=== PATIENT | male | born 1940 | race Caucasian/White ===

== ENCOUNTER → 2017-09-22 07:31 | Outpatient (CLI) | payer MEDICARE, BC, SELFPAY ==
--- NOTE | 2017-09-22 | DI.RAD.S_ITS ---
PROCEDURE: XR FOOT RT MIN 3V INDICATIONS: RIGHT DISTAL FOOT PAIN TECHNIQUE: 3 views of the foot were acquired. COMPARISON: [facility], , FOOT 3V RIGHT, 06/08/2006, 11:12. FINDINGS: Bones: No fractures or dislocations. No suspicious bony lesions. Mild degenerative changes in multiple interphalangeal joints. Mild lateral first MTP joint subluxation. Soft tissues: No tibiotalar joint effusion. Achilles tendon appears normal. IMPRESSION: No acute fractures or dislocations. Mild degenerative change. Dictated by: Ruben Kothari M.D. on 09/22/2017 at 12:24 Approved by: Ruben Kothari M.D. on 09/22/2017 at 12:25
== END ==
PROVIDERS: PCP Family Medicine; Visit Provider Family Medicine
DX: M79.671 Pain in right foot (principal)
CPT/HCPCS: 73630

== ENCOUNTER → 2017-12-05 10:45 | Outpatient (CLI) | payer MEDICARE, BC, SELFPAY ==
--- NOTE | 2017-12-05 | DI.RAD.S_ITS ---
PROCEDURE: XR TIBIA FUBULA RT 2V INDICATIONS: RIGHT MEDICAL LEG CONTUSION TECHNIQUE: 2 views of the tibia and fibula were acquired. COMPARISON: [facility], CR, XR KNEE ARTHRITIC SERIES RT, 08/13/2015, 14:51. [facility], CR, XR KNEE 1 OR 2VW RT, 03/24/2015, 14:19. FINDINGS: Bones: No fractures or dislocations. Postsurgical changes compatible with right knee arthroplasty noted. Lucency is noted adjacent to the medial margin of the femoral component of the knee arthroplasty represent artifact, however infection or loosening of the prosthesis can't be excluded. Recommend dedicated right knee series for definitive characterization. Soft tissues: No suspicious soft tissue calcifications or masses. IMPRESSION: 1. No fracture. No acute osseous lesion. If symptoms and/or clinical suspicion for pathology persists, further assessment with repeat radiographs (7-10 days) or advanced imaging (e.g. CT, MRI or bone scan) may be helpful. 2. Lucency adjacent to the femoral component of right knee arthroplasty. Recommend dedicated right knee series for definitive characterization. 3. Findings discussed with Dr. Yordy Stone on 12/05/2017 at 1109 hrs. Dictated by: Estrella Benton MD, PhD on 12/05/2017 at 11:00 Approved by: Estrella Benton MD, PhD on 12/05/2017 at 11:10
== END ==
PROVIDERS: PCP Family Medicine; Visit Provider Internal Medicine
DX: S80.11XA Contusion of right lower leg, initial encounter (principal); Z96.651 Presence of right artificial knee joint
CPT/HCPCS: 73590

== ENCOUNTER → 2017-12-06 09:55 | Outpatient (CLI) | payer MEDICARE, BC, SELFPAY ==
--- NOTE | 2017-12-06 | DI.RAD.S_ITS ---
PROCEDURE: XR KNEE RT 3V INDICATIONS: RIGHT KNEE ABN TECHNIQUE: 3 views of the knee were acquired. COMPARISON: [facility], CR, XR KNEE ARTHRITIC SERIES RT, 08/13/2015, 14:51. [facility], CR, KNEE 3V RIGHT, 04/30/2014, 10:23. FINDINGS: Bones: No fractures or dislocations. No suspicious bony lesions. Prior right total knee arthroplasty components appear normal. Soft tissues: No joint effusion. No suspicious soft tissue calcifications. IMPRESSION: No trauma, no evidence of arthroplasty components loosening. No effusion found. Dictated by: Teo Bee M.D. on 12/06/2017 at 10:45 Approved by: Teo Bee M.D. on 12/06/2017 at 10:45
== END ==
PROVIDERS: PCP Family Medicine; Visit Provider Family Medicine
DX: R93.6 Abnormal findings on diagnostic imaging of limbs (principal)
CPT/HCPCS: 73562

== ENCOUNTER 2018-05-06 12:50 | Emergency (ER) | payer MEDICARE, BC, SELFPAY ==
[2018-05-06 13:00] VITALS: BP 143/90; PULSE 77; RESP 12; TEMP 36.6; O2SAT 98
--- NOTE | 2018-05-06 13:08 | DI.RAD.S_ITS ---
PROCEDURE: XR FOOT RT MIN 3V INDICATIONS: pain TECHNIQUE: 3 views of the foot were acquired. COMPARISON: 09/22/2017. FINDINGS: Bones: No fractures or dislocations. No suspicious bony lesions. Mild degenerative changes of the right first metatarsophalangeal joint. Small plantar calcaneal spur as before. Soft tissues: No tibiotalar joint effusion. Achilles tendon appears normal. IMPRESSION: Mild degenerative changes of the right foot. No acute osseous abnormalities. Dictated by: Ajit Luevano M.D. on 05/06/2018 at 14:11 Approved by: Ajit Luevano M.D. on 05/06/2018 at 14:14
--- NOTE | 2018-05-06 14:20 | ED.LOWEXIN ---
HPI - Extremity Injury (Lower) <DANIEL Rice Last Filed: 05/06/18 22:01> General Chief Complaint: Extremity Injury, Lower Stated Complaint: pain in right foot, heard something snap yest Time Seen by Provider: 05/06/18 13:04 Source: patient Mode of arrival: ambulatory Limitations: no limitations History of Present Illness HPI Narrative: This 78-year-old gentleman states he was walking down the [place] in his socks yesterday when he felt and heard a snap or popping sensation in his right midfoot, then he had pain with bearing any weight on it. He states he had to walk with pressure on his heel. He elevated the foot last night and tried heat. He states this morning, he still has difficulty walking due to the pain and was concerned about fracture so came here. He denies any other new pain in the extremity or other new symptoms. No other trauma. Related Data Home Medications Medication Instructions Recorded Confirmed felodipine 5 mg PO QDAY #0 06/14/17 omeprazole 20 mg PO QDAY #0 06/14/17 Previous Rx's Medication Instructions Recorded tramadol 1 tab PO Q6HP PRN #10 tab 06/14/17 Allergies Allergy/AdvReac Type Severity Reaction Status Date / Time oxycodone [OXYCODONE] Allergy Severe HIVES Unverified 07/20/17 12:04 Penicillins Allergy Severe HIVES Unverified 07/20/17 12:04 Review of Systems <Mikaela Reyes PA-C - Last Filed: 05/06/18 22:01> Review of Systems ROS Unobtainable: All systems reviewed & are unremarkable except as noted in HPI and below PFSH <DANIEL Riec Last Filed: 05/06/18 22:01> Comment: Former smoker Exam <DANIEL Rice Last Filed: 05/06/18 22:01> Narrative Exam Narrative: GENERAL APPEARANCE: Patient sitting comfortably, in no distress. LUNGS: Clear to auscultation bilaterally. HEART: Rate and rhythm regular without murmur, normal S1 and S2, no S3 or S4. EXTREMITIES: No cyanosis, no edema DERMATOLOGIC: Right foot no ecchymoses or abrasions MUSCULOSKELETAL: Right foot no effusion. No tenderness over the right ankle or bones of the right foot. Tender over the arch, more on the medial side. No tenderness elsewhere, Achilles is intact by palpation. Full range of motion at the right ankle and foot with tenderness on deviation. Strength is intact in the toes against resistance Initial Vital Signs Initial Vital Signs: Vital Signs Temperature 97.8 F 05/06/18 13:00 Pulse Rate 77 05/06/18 13:00 Respiratory Rate 12 05/06/18 13:00 Blood Pressure 143/90 H 05/06/18 13:00 Pulse Oximetry 98 05/06/18 13:00 <DO Claudette Gunter Last Filed: 05/07/18 07:02> Initial Vital Signs Initial Vital Signs: Vital Signs Temperature 97.8 F 05/06/18 13:00 Pulse Rate 77 05/06/18 13:00 Respiratory Rate 12 05/06/18 13:00 Blood Pressure 143/90 H 05/06/18 13:00 Pulse Oximetry 98 05/06/18 13:00 Course <DANIEL Rice Last Filed: 05/06/18 22:01> Orders Ordered: ED Orders 05/06/18 13:08 XR foot RT min 3V Stat Vital Signs - 8 hr 05/06/18 13:00 Temperature 97.8 F Pulse Rate 77 Respiratory Rate 12 Blood Pressure 143/90 H Pulse Oximetry 98 <DO Claudette Gunter Last Filed: 05/07/18 07:02> Orders Ordered: ED Orders 05/06/18 13:08 XR foot RT min 3V Stat Vital Signs - 8 hr 05/06/18 13:00 Temperature 97.8 F Pulse Rate 77 Respiratory Rate 12 Blood Pressure 143/90 H Pulse Oximetry 98 MDM - Extremity Injury (Lower) <DANIEL Rice Last Filed: 05/06/18 22:01> Imaging Data foot: Radiologist's impression: [address] [address] XRay Report Signed Patient: Ivan Vásquez#: [id number] : 1Acct:[id number] Age/Sex: 78 / MDate of Service: 05/06/18 Loc: ED Accession Number: [id number] Procedure: XR foot RT min 3V Ordering Provider: Lanker,Wesley D.O. PROCEDURE: XR FOOT RT MIN 3V INDICATIONS: pain TECHNIQUE: 3 views of the foot were acquired. COMPARISON: 09/22/2017. FINDINGS: Bones: No fractures or dislocations. No suspicious bony lesions. Mild degenerative changes of the right first metatarsophalangeal joint. Small plantar calcaneal spur as before. Soft tissues: No tibiotalar joint effusion. Achilles tendon appears normal. IMPRESSION: Mild degenerative changes of the right foot. No acute osseous abnormalities. Dictated by: Ajit Luevano M.D. on 05/06/2018 at 14:11 Approved by: Ajit Luevano M.D. on 05/06/2018 at 14:14 Discharge Plan Departure Patient Disposition: Home Clinical Impression: Right foot sprain Discharge Date/Time: 05/06/18 15:21 Interventions: ED Discharge Assessment Last Done: 05/06/18 15:20 Instructions: DI for Foot Sprain Activity Restrictions/Additional Instructions: There was no fracture found on your foot x-ray today. You do have some arthritis, but I suspect your pain is due to a soft tissue injury of a ligament or tendon. Please return if you have any acutely worsening symptoms, otherwise please wear the surgical shoe when you are walking. Please continue ice today if that is helpful. You can apply an [id number] lidocaine 4% patch or topical rub such as Emir Gtz or Aspercreme if you wish. Also please start Tylenol arthritis Strength/8 hr 650 mg, and take 1 tablet every 8 hr routinely as this is a lower dose and may be more helpful for keeping pain under control than extra-strength Tylenol. You can take an extra tablet for more severe pain if needed (up to 4 daily). Please schedule a follow-up with your PCP next week as repeat x-rays or further imaging may be needed if you are not getting better. Prescriptions: No Action omeprazole 20 MG capsule,delayed release(DR/EC) 20 mg PO QDAY Qty: 0 RF: 0 felodipine 5 MG tablet extended release 24 hr 5 mg PO QDAY Qty: 0 RF: 0 tramadol 50 MG tablet 1 tab PO Q6HP PRNQty: 10 RF: 0 Referrals: Yordy Stone MD [Primary Care Provider] - <Wesley Ratliff DO - Last Filed: 05/07/18 07:02> Cosign ED Attending Cosignature Attestation: I was available for consultation during this patient's emergency department encounter
== END 2018-05-06 15:21 | disposition home or self-care (01) ==
PROVIDERS: Emergency Provider Internal Medicine; PCP Family Medicine
DX: S93.601A Unspecified sprain of right foot, initial encounter (principal); Y93.02 Activity, running
CPT/HCPCS: 73630; 99282; 99283

== ENCOUNTER → 2018-05-15 18:51 | Outpatient (CLI) | payer MEDICARE, BC, SELFPAY ==
--- NOTE | 2018-05-15 18:55 | DI.MRI.S_ITS ---
PROCEDURE: MR FOOT RT WO CON INDICATIONS: RIGHT FOOT PAIN TECHNIQUE: Noncontrast sagittal T1 spin echo and T2 fast spin echo with fat saturation, long-axis T1 spin echo and T2 fast spin echo with fat saturation, short-axis T1 spin echo and T2 fast spin echo with fat saturation through the forefoot. COMPARISON: [facility], CR, XR FOOT RT MIN 3V, 05/06/2018, 14:02. FINDINGS: Image quality: Excellent. Bones and joints: Marrow edema is present within the base of the second and third metatarsal, and there is a suspected nondisplaced fracture seen on image 18 series 5 involving the base of the second metatarsal. Additional suspected fracture line seen in the third and fourth metatarsal bases, images 21 and 25 series 5. The sesamoid bones appear in expected positions, without internal edema. First metatarsophalangeal joint degeneration. No intraosseous lesions. Soft tissues: The visualized plantar foot muscles demonstrate T2 hyperintensity and edema, which could be reflective of acute strain versus reactive change to fracture. Visualized flexor and extensor tendons appear intact, without tenosynovitis. The distal insertions of the peroneus brevis and longus tendons appear intact. The principal Lisfranc ligament appears intact. No soft tissue ganglion cysts or bursal fluid collections. Sagittal images demonstrate no evidence for plantar plate tears. IMPRESSION: Nondisplaced stress fractures involving the bases of the second, third and fourth metatarsals with associated reactive marrow and adjacent soft tissue edema. Recommend confirmation and further characterization with dedicated foot CT. Dictated by: Antoni Hoffman M.D. on 05/16/2018 at 8:42 Approved by: Antoni Hoffman M.D. on 05/16/2018 at 8:59
== END ==
PROVIDERS: PCP Family Medicine; Visit Provider Family Medicine
DX: M84.374A Stress fracture, right foot, initial encounter for fracture (principal); M79.671 Pain in right foot
CPT/HCPCS: 73718

== ENCOUNTER → 2018-05-17 14:48 | Outpatient (CLI) | payer MEDICARE, BC, SELFPAY ==
--- NOTE | 2018-05-17 | DI.CT.S_ITS ---
PROCEDURE: CT LE RT WO CON INDICATIONS: NONDISPLACED STRESS FRACTURES RIGHT FOOT TECHNIQUE: Noncontrast 1-1.5 mm axial sections acquired from above the tibiotalar joint to the bottom of the calcaneus, with coronal and sagittal reformats. COMPARISON: [facility], CR, XR FOOT RT MIN 3V, 09/22/2017, 7:37. [facility], MR, MR FOOT RT WO CON, 05/15/2018, 19:01. [facility], CR, XR FOOT RT MIN 3V, 05/06/2018, 14:02. FINDINGS: Image quality: Excellent. Bones: At the base of the second, third and fourth metatarsal bones correlated with the area of MR concern from 05/15/18 definite fracture planes are not found. Mild degenerative osteoarthritic change is present at these respective T.-MT articulations. Several subchondral cysts are seen at the base of the metatarsal bones specifically at the second and third T.-MT margins at the second metatarsal base and at the third tarsal bone. These are chronic in appearance. No new fractures are found. Soft tissues: No soft tissue abnormality seen. IMPRESSION: The accuracy of MRI for detecting nondisplaced fractures is higher than CT scanning. The current CT scan does not show definite fractures at the base of the second, third and fourth metatarsal bones. There are areas of degenerative osteoarthritis at these 3 joint margins, with small subchondral cysts present as discussed above at the second and third rays. The prior MRI shows a greater degree of marrow space edema at the second ray than the third ray and minimal change at the fourth ray. Overall the appearance raises concern for a stress reaction rather than displaced fractures. Please note that stress reaction can progress to true stress fractures. Dictated by: Teo Bee M.D. on 05/17/2018 at 15:36 Approved by: Teo Bee M.D. on 05/17/2018 at 15:45
== END ==
PROVIDERS: PCP Family Medicine; Visit Provider Family Medicine
DX: M84.374A Stress fracture, right foot, initial encounter for fracture (principal); M19.071 Primary osteoarthritis, right ankle and foot; M85.671 Other cyst of bone, right ankle and foot; M79.671 Pain in right foot
CPT/HCPCS: 73700

== ENCOUNTER → 2018-06-09 09:09 | Outpatient (CLI) | payer MEDICARE, BC, SELFPAY ==
--- NOTE | 2018-06-09 | DI.RAD.S_ITS ---
PROCEDURE: XR FOOT LT MIN 3V INDICATIONS: lt foot pain no trauma TECHNIQUE: 3 views of the foot were acquired. COMPARISON: [facility], CR, XR FOOT LT MIN 3V, 06/09/2018, 0:00. FINDINGS: Bones: No fractures or dislocations. No suspicious bony lesions. Midfoot degenerative spurring. Mild first MTP joint degeneration. Diffuse interphalangeal osteoarthritis. Soft tissues: No tibiotalar joint effusion. Achilles tendon appears normal. IMPRESSION: Mild degenerative changes as above. Dictated by: Antoni Hoffman M.D. on 06/09/2018 at 11:51 Approved by: Antoni Hoffman M.D. on 06/09/2018 at 11:53
== END ==
PROVIDERS: PCP Family Medicine; Visit Provider Family Medicine
DX: M79.672 Pain in left foot (principal); M19.072 Primary osteoarthritis, left ankle and foot
CPT/HCPCS: 73630

== ENCOUNTER → 2018-11-22 13:16 | Outpatient (CLI) | payer MEDICARE, BC, SELFPAY ==
--- NOTE | 2018-11-22 | DI.RAD.S_ITS ---
PROCEDURE: XR HIP W PEL IF DONE RT 2V INDICATIONS: RIGHT ILLAIC AREA PAIN TECHNIQUE: AP pelvis with lateral view(s) of the right hip. COMPARISON: None. FINDINGS: Bones: No fractures or dislocations. Pelvic ring appears intact. No suspicious bony lesions. Soft tissues: The visualized bowel gas pattern is normal. No suspicious soft tissue calcifications. IMPRESSION: Minimal symmetric hip joint osteoarthritis, no trauma found. Dictated by: Teo Bee M.D. on 11/22/2018 at 14:27 Approved by: Teo Bee M.D. on 11/22/2018 at 14:28
== END ==
PROVIDERS: PCP Family Medicine; Visit Provider Family Medicine
DX: R10.2 Pelvic and perineal pain (principal)
CPT/HCPCS: 73502

== ENCOUNTER → 2019-04-06 08:04 | Outpatient (CLI) | payer MEDICARE, BC, SELFPAY ==
--- NOTE | 2019-04-09 18:18 | DI.NM.S_ITS ---
DATE OF SERVICE: 04/06/2019 PROCEDURE: Pharmacological perfusion study. INDICATIONS: Shortness of breath, hypertension. RADIOPHARMACEUTICAL: 25.1 mCi technetium-99m Myoview IV was injected at stress and 26.8 mCi technetium-99m Myoview IV was injected at rest. CARDIAC STRESS: Patient underwent pharmacological perfusion study with IV Lexiscan under the supervision of an attending staff. Patient remained hemodynamically stable. Baseline EKG revealed sinus rhythm. Stress EKG did not reveal any obvious inducible ischemic changes. No significant arrhythmias seen. No chest pain. Patient felt minimal dyspnea on during Lexiscan. RAW DATA: There is increased subdiaphragmatic activity. GATED STUDY: Stress LV ejection fraction 74% without any obvious wall motion abnormalities. No transient ischemic dilatation. TID ratio is 0.95, which is within normal limits. Resting LV end-diastolic volume is 107 mL. Lung/heart ratio is 0.32, which is within normal limits. MYOCARDIAL PERFUSION SCAN: Stress supine, resting supine, and stress prone images were compared to each other. Stress supine and resting supine images revealed small-to have a moderate sized, mildly decreased perfusion of inferior wall, inferoapex, and basal inferolateral wall which got completely resolved during prone images suggestive of tissue attenuation artifact. No convincing ischemia or infarction pattern seen. CONCLUSION: I will call this study a normal myocardial perfusion study with evidence of diaphragmatic tissue attenuation artifact which got resolved during prone images. Left ventricular (LV) function is preserved. Patient had perfusion study in 04/2017. At that time also had normal myocardial perfusion. Alex Vásquez - Ayush/ doc#: [id number]/job#: [id number] dd: 04/09/2019 17:05:00 dt: 04/09/2019 18:11:00 DICTATING MD/COPIES TO: Berna Becker MD COPIES MNE: FRED
== END ==
PROVIDERS: PCP Family Medicine; Visit Provider Family Medicine
DX: R06.09 Other forms of dyspnea (principal); R06.02 Shortness of breath; I10 Essential (primary) hypertension
CPT/HCPCS: 78452; 93016; 93017; 93018; A9502; J2785

== ENCOUNTER → 2019-04-13 14:30 | Outpatient (CLI) | payer MEDICARE, BC, SELFPAY ==
--- NOTE | 2019-04-13 | DI.RAD.S_ITS ---
PROCEDURE: XR CHEST 2V INDICATIONS: DYSPNEA TECHNIQUE: 2 views of the chest were acquired. COMPARISON: [facility], , CHEST 2 VIEW, 07/22/2008, 11:40. FINDINGS: Surgical changes and devices: None. Lungs and pleura: Lungs are clear. No pleural effusions or pneumothorax. Mediastinum: Mediastinal contours are normal. Heart size is normal. Bones and chest wall: No suspicious bony abnormalities. Soft tissues appear unremarkable. IMPRESSION: No acute pulmonary process. Dictated by: Amina Falk M.D. on 04/13/2019 at 16:38 Approved by: Amina Falk M.D. on 04/13/2019 at 16:39
== END ==
PROVIDERS: PCP Family Medicine; Visit Provider Family Medicine
DX: R06.00 Dyspnea, unspecified (principal)
CPT/HCPCS: 71046

== ENCOUNTER → 2020-05-14 07:35 | Outpatient (CLI) | payer MEDICARE, BC, SELFPAY ==
[2020-05-14] MEDS: COVID-19 VACC #1, MRNA(MOD) 100 MCG/0.5 ML VIAL IM (07:47)
== END ==
PROVIDERS: PCP Family Medicine; Visit Provider Internal Medicine
DX: Z23 Encounter for immunization (principal)
CPT/HCPCS: 0011A; 91301

== ENCOUNTER → 2020-06-12 07:27 | Outpatient (CLI) | payer MEDICARE, BC, SELFPAY ==
[2020-06-12] MEDS: COVID-19 VACC #2, MRNA(MOD) 100 MCG/0.5 ML VIAL IM (07:40)
== END ==
PROVIDERS: PCP Family Medicine; Visit Provider Internal Medicine
DX: Z23 Encounter for immunization (principal)
CPT/HCPCS: 0012A; 91301

== ENCOUNTER → 2021-10-13 10:30 | Outpatient (CLI) | payer MEDICARE, BC, SELFPAY ==
--- NOTE | 2021-10-13 18:27 | DI.NM.S_ITS ---
DATE OF SERVICE: PROCEDURE PERFORMED: Pharmacological perfusion study. INDICATION: Shortness of breath, hypertension, and underlying coronary artery disease. RADIOPHARMACEUTICAL: 24.4 millicurie technetium-99m Myoview IV was injected at stress and 12.2 millicurie technetium-99m Myoview IV was injected at rest. CARDIAC STRESS: The patient underwent IV Lexiscan perfusion study under the supervision of an attending staff using standard intravenous Lexiscan as per protocol. The patient remained hemodynamically stable. Baseline rhythm was sinus. During stress, no convincing ischemic changes. No new significant arrhythmias seen. The patient had minimal dyspnea. No chest discomfort. RAW DATA: There was increased subdiaphragmatic activity. The patient's weight is 209 pounds. GATED STUDY: Stress LV ejection fraction is 74 percent without any obvious wall motion abnormalities. Resting end-diastolic volume 93 mL. Lung/heart ratio 0.32, which is within normal limits. TID ratio 1.45. This is a pharmacological perfusion study. However, on visual inspection, I do not see any significant transient ischemic dilatation. MYOCARDIAL PERFUSION SCAN: Stress supine, resting supine, and stress prone images were compared to each other. Stress supine and resting supine images revealed small size, mildly decreased perfusion of basal inferior wall extending into the basal inferolateral wall as well as basal inferior septum and inferior apex which got completely resolved during stress prone images, suggestive of diaphragmatic tissue attenuation artifact. No convincing ischemia or infarction. CONCLUSION: I will call this study a normal myocardial perfusion study with evidence of diaphragmatic tissue attenuation artifact which got resolved during the stress prone images. Preserved left ventricular function. The patient had a pharmacological perfusion study in March,. At that time, also, the patient had similar perfusion study. Overall low-risk myocardial perfusion study. Alex Vásquez - MADY/kathryn/LEV doc#: [id number]/job#: [id number] dd: 10/13/2021 17:11:00 dt: 10/13/2021 18:19:00 DICTATING /COPIES TO: Berna Becker MD COPIES MNE: FRED;
== END ==
PROVIDERS: PCP Family Medicine; Referring Provider Family Medicine; Visit Provider Family Medicine
DX: I25.10 Atherosclerotic heart disease of native coronary artery without angina pectoris (principal)
CPT/HCPCS: 78452; 93017; A9502; J2785

== ENCOUNTER 2022-06-24 09:50 | Day surgery (SDC) | payer MEDICARE, BC, SELFPAY ==
--- NOTE | 2022-06-24 | PATH_ITS ---
[facility] Accession Number: [id number] No. of containers..01 Tissue . 01 Material submitted: . anal skin - ANAL LESION . 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 Negative for dysplasia or malignancy. Additional step sections examined. [facility] 07/01/2022 1741 Local . 01 Comment: As part of routine clinical quality assurance specialist, Dr. 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 . 01 Electronically signed: . Vasu Haskins MD, PhD, Pathologist NPI- [id number] . 01 Gross description: . ANAL LESION: Received in formalin are 2 fragment(s) of ramos, soft tissue measuring 0.1 x 0.1 x 0.1 cm submitted entirely in 1 cassette(s) /[facility] 06/25/2022 0142 Local . 01 Microscopic: . Sections are of squamous mucosa with mild reactive changes, including focal parakeratosis. To further evaluate the epithelium, a limited panel of immunohistochemical stains is performed (each with an appropriately positive control). The squamous epithelium is negative for block-like p16 immunoreactivity. A Ki-67 immunohistochemical stain shows a wild-type immunoreactivity pattern with the mitotic activity confined to the lower third. Overall, the features are consistent with a reactive process and provide no evidence of a condyloma. . * This test was developed and its performance characteristics determined by [facility]. It has not been cleared or approved by the U.S. Food and Drug Administration. The FDA has determined that such clearance or approval is not necessary. This test is used for clinical purposes. It should not be regarded as investigational or for research. . 01 Pathologist provided ICD-10: K62.0 . 01 CPT . 744151, M70210, M21865 Specimen Comment: A courtesy copy of this report has been sent to [phone] Performed at: 01 [facility] [address] [place] [address] [id number] MD Juan Daniel Romero MD Phone: [phone]
[2022-06-24 10:06] VITALS: BP 147/87; PULSE 108; RESP 16; TEMP 36.2; O2SAT 99; BMI 26.6
[2022-06-24] MEDS: LACTATED RINGERS 1,000 ML 120 ML IV (10:13)
--- NOTE | 2022-06-24 10:18 | PM.HP.1 ---
History of Present Illness History of Present Illness Date Patient Seen: 06/24/22 Time Patient Seen: 10:18 Chief complaint: SDC Narrative: Alex is a an 82-year-old man who here for for colonoscopy. His last 1 was about 5 years ago and was normal. He did have polyps at a previous colonoscopy. His brother recently had anal cancer. Patient History Medical History (Updated 06/24/22 @ 10:19 by Ketan Salas MD) Hearing deficit HTN (hypertension) Neuropathy Stomach ulcer due to nonsteroidal anti-inflammatory drug (NSAID) Surgical History 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 Hx of hernia repair Family & Social History Family History Mother Hypertension Father Hypertension Stroke Brother Colon cancer Sister Colon cancer Other Family history non-contributory Social History: household members spouse Tobacco & Substance use: Smoking Status Never smoker alcohol intake current alcohol intake frequency holiday/special occasion Substance Use Type does not use Meds Home Medications and Allergies Home Medications Medication Instructions Recorded Confirmed Type felodipine 5 mg tablet,extended 5 mg PO QDAY ##0 06/14/17 06/24/22 History release 24 hr omeprazole 20 mg capsule,delayed 20 mg PO QDAY ##0 06/14/17 06/24/22 History release sodium sul 1.479 gram-potas ch See Rx Instructions PO PER PKG DIR 05/20/22 06/24/22 Rx 0.188 gram-magnes sul 0.225 gram #24 tabs tablet (Sutab) tramadol 50 mg tablet 1 tab PO Q6HP PRN Insomnia 06/24/22 06/24/22 History Allergies Allergy/AdvReac Type Severity Reaction Status Date / Time oxycodone [OXYCODONE] Allergy Severe HIVES Verified 06/24/22 09:56 Penicillins Allergy Severe HIVES Verified 06/24/22 09:56 Exam Vital Signs (past 8 hours): - 06/24/22 10:06 Temperature 97.2 F L Pulse Rate 108 H Respiratory Rate 16 Blood Pressure 147/87 H Pulse Oximetry 99 Oxygen Delivery Method Room Air Oxygen Delivery Method Room Air Const General: healthy appearing Assessment & Plan Assessment and plan (1) History of colon polyps: Status: Acute Plan 82-year-old man with a history of colon polyps and brother who had anal cancer. We reviewed the risks and benefits of colonoscopy and he would like to proceed. Time Spent With Patient Critical Care time: I spent a total of [] minutes of critical care time on this patient's care today; this time is exclusive of procedural time.
--- NOTE | 2022-06-24 11:23 | PM.OP.COLON ---
Operative Date/Time/Diagnoses Date of procedure: 06/24/22 Time of procedure: 11:23 Pre-op diagnosis: History of polyps Procedure & Clinicians Study performed: Colonoscopy Same procedure as scheduled: Yes Surgeon: Ketan Salas Procedure Notes Procedure in detail: Surgeon: Ketan Salas MD Anesthesia: Diana Alexandre CRNA Procedure: The patient was brought to the endoscopy suite, placed in left lateral decubitus position. The patient was connected to monitoring devices. A time-out was performed. Sedation was administered. Once the patient was adequately sedated, a digital rectal exam was performed and was normal. The scope was then inserted and advanced to the cecum where the appendiceal orifice was identified and photographed. The scope was then slowly withdrawn over greater than 6 minutes. The mucosa was thoroughly inspected. No abnormalities were noted throughout the colon. The scope was retroflexed in the rectum. There was a lesion right at the dentate line which was most likely a retroflexed hemorrhoidal papilla. Biopsies were taken with cold forceps. The scope was straightened and removed. The patient was awakened and brought to recovery. Scope withdrawal time: 9 minutes Sedation time: 17 minutes EBL: 5 mL Findings: Retroflexed hemorrhoidal papilla Post-procedure Disposition: PACU
[2022-06-24 11:25] VITALS: BP 104/72; PULSE 78; RESP 20; TEMP 36.3; O2SAT 94
[2022-06-24 11:31] VITALS: BP 102/69; PULSE 78; RESP 14; O2SAT 96
[2022-06-24 11:37] VITALS: BP 114/76; PULSE 75; RESP 16; O2SAT 94
== END 2022-06-24 11:49 | disposition home or self-care (01) ==
PROVIDERS: PCP Family Medicine; Referring Provider Surgery; Visit Provider Surgery
PROC: 0DJD8ZZ Inspection of Lower Intestinal Tract, Via Natural or Artificial Opening Endoscopic (ICD-10-PCS; CPT 45378; principal; 2022-06-24 11:00)
DX: Z12.11 Encounter for screening for malignant neoplasm of colon (principal); Z86.010 Personal history of colon polyps; K64.4 Residual hemorrhoidal skin tags
CPT/HCPCS: 45380; J2704

== ENCOUNTER 2022-12-12 14:35 | Emergency (ER) | payer MEDICARE, BC, SELFPAY ==
[2022-12-12] VITALS (16 sets, daily range): BP systolic 152–172; BP diastolic 80–91; PULSE 60–88; RESP 8–19; O2SAT 95–98; BMI 26.9
[2022-12-12 15:23] LABS: Add Manual Diff / Slide Review NO; Basophils Absolute Auto 100 /uL (0-100); Basophils Percent Auto 0.9 % (0-2); Eosinophils Absolute Auto 100 /uL (0-450); Eosinophils Percent Auto 1.2 % (2-4); Hematocrit 36.1 % (41-53); Hemoglobin 12.3 g/dL (13.5-17.5); Lymphocytes Absolute Auto 2000 /uL (1100-4500); Lymphocytes Percent Auto 26.5 % (25-40); Mean Corpuscular Hemoglobin 31.3 PG (26-34); Mean Corpuscular Volume 92.1 fL (80-100); Monocytes Absolute Auto 600 /uL (0-900); Monocytes Percent Auto 8.5 % (3-14); Neutrophils Absolute Auto 4600 /uL (1500-7000); Neutrophils Percent Auto 62.9 % (50-75); Platelet Count 325 X10^3/uL (150-400); Red Blood Cell Count 3.91 X10^6/uL (4.5-5.9); Red Cell Distribution Width 13.3 % (11.6-14.8); White Blood Cell Count 7.4 X10^3/uL (4.5-11.0)
[2022-12-12 15:33] LABS: Alanine Aminotransferase 21 IU/L (<50); Albumin 4.2 g/dL (3.5-5.0); Albumin Globulin Ratio 1.7 (1.0-2.8); Alkaline Phosphatase 50 U/L (38-126); Aspartate Aminotransferase 25 IU/L (17-59); BUN Creatinine Ratio 24.5 (6-22); Bilirubin Total 0.4 mg/dL (0.2-1.3); Blood Urea Nitrogen 26 mg/dL (9-20); Calcium 8.8 mg/dL (8.4-10.2); Carbon Dioxide 23 mmol/L (22-32); Chloride 106 mmol/L (98-107); Estimated Glomerular Filt Rate > 60 mL/min (>60); Globulin 2.5 g/dL (1.7-4.1); Glucose 101 mg/dL (80-110); HEMOLYSIS < 15 (0-50); Potassium 3.7 mmol/L (3.4-5.1); Sodium 136 mmol/L (137-145); Total Protein 6.7 g/dL (6.3-8.2)
--- NOTE | 2022-12-12 16:00 | DI.CT.S_ITS ---
PROCEDURE: CT HEAD/BRAIN WO CON INDICATIONS: LIGHTHEADED/GAIT PROBLEMS X1 MONTH TECHNIQUE: Noncontrast 4.5 mm thick angled axial sections acquired from the foramen magnum to the vertex, with coronal and sagittal reformats. For radiation dose reduction, the following was used: automated exposure control, adjustment of mA and/or kV according to patient size. COMPARISON: [facility], CT, HEAD WITHOUT CONTRAST, 05/07/2007, 14:34. [facility], MR, BRAIN W&WO CONTRAST, 12/27/2016, 7:16. FINDINGS: Image quality: This examination is limited by involuntary motion artifact. CSF spaces: Basal cisterns are patent. 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 The ventricles are symmetric in size and shape. Brain: No intracranial bleeds or masses. There is cerebral volume loss for age, with resultant ventricular and sulcal prominence. There are periventricular and deep white matter chronic small vessel ischemic changes. There is intracranial internal carotid artery atherosclerosis. Skull and face: Calvarium and visualized facial bones appear intact, without suspicious lesions. Sinuses: Visualized sinuses and mastoids are clear. IMPRESSION: No red acute intracranial abnormality is seen. Bilateral subdural hygromas are seen, left larger than right, without acute components seen. These are similar to 2017. Dictated by: Rios Noriega M.D. on 12/12/2022 at 15:20 Approved by: Rios Noriega M.D. on 12/12/2022 at 15:22
--- NOTE | 2022-12-12 16:02 | ED_ITS ---
HPI - General Adult General Chief complaint: Dizziness Stated complaint: Light headed, unstable on feet; high and low bp Time Seen by Provider: 12/12/22 14:44 Source: patient Mode of arrival: Ambulatory History of Present Illness HPI narrative: 82yoM with PMH HTN presents for intermittent lightheadedness, foggyness, and a low blood pressure reading at home. Patient checks his BP multiple times per day and his last reading before coming in was 90 systolic. Patient states that when he gets up from bed he feels lightheaded. Triage note states gait disturbance, however patient repeatedly states that he feels in a fog. Denies vertigo, falls, gait instability, difficulty walking. Denies changes in medications recently. Currently asymptomatic. Related Data Home Medications Medication Instructions Recorded Confirmed felodipine 5 mg tablet,extended 5 mg PO QDAY ##0 06/14/17 06/24/22 release 24 hr omeprazole 20 mg capsule,delayed 20 mg PO QDAY ##0 06/14/17 06/24/22 release tramadol 50 mg tablet 1 tab PO Q6HP PRN Insomnia 06/24/22 06/24/22 Previous Rx's Medication Instructions Recorded sodium sul 1.479 gram-potas ch See Rx Instructions PO PER PKG DIR 05/20/22 0.188 gram-magnes sul 0.225 gram #24 tabs tablet (Sutab) Allergies Allergy/AdvReac Type Severity Reaction Status Date / Time oxycodone [OXYCODONE] Allergy Severe HIVES Verified 06/24/22 09:56 Penicillins Allergy Severe HIVES Verified 06/24/22 09:56 Review of Systems Review of Systems Narrative: CONSTITUTIONAL- Denies: fever, chills, fatigue HEENT- Denies: sore throat, nosebleed, vision changes RESPIRATORY- Denies: shortness of breath, cough, wheezing CARDIAC- Denies: chest pain, edema, orthopnea GI- Denies: abdominal pain, nausea, vomiting, constipation, diarrhea - Denies: frequency, dysuria, hematuria, flank pain MSK- Denies: extremity pain, extremity swelling, joint pain, joint swelling SKIN- Denies: rash, itching, burn, swelling NEUROLOGICAL-reports: Lightheaded, brain fog Denies: headache, numbness, weakness, dizziness PSYCHIATRIC- Denies: anxiety, depression, suicidal ideation, homicidal ideation Patient History Medical History (Updated 12/12/22 @ 17:42 by Alva Ward MD) Hearing deficit HTN (hypertension) Neuropathy Stomach ulcer due to nonsteroidal anti-inflammatory drug (NSAID) Surgical History 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 Hx of hernia repair Family History Mother Hypertension Father Hypertension Stroke Brother Colon cancer Sister Colon cancer Other Family history non-contributory Social History marital status: household members: spouse occupational status: previously employed Smoking Status: Never smoker alcohol intake: current substance use type: does not use Smoking Status: Never smoker alcohol intake frequency: holidays/special occasions only Substance Use Type: does not use Exam Initial Vital Signs Initial Vital Signs: Vital Signs Pulse Rate 88 12/12/22 14:46 Respiratory Rate 18 12/12/22 14:46 Blood Pressure 164/88 H 12/12/22 14:46 Pulse Oximetry 96 12/12/22 14:46 Oxygen Delivery Method Room Air 12/12/22 14:46 Const: Well-nourished, Well-developed, appears stated age Eyes: PERRL, EOMI, conjunctiva normal ENT: Atraumatic, dentition normal, mucous membranes moist Cardiac: regular rate, regular rhythm RESP: unlabored, clear bilaterally, no wheezing GI: Atraumatic, soft, nontender, nondistended, no rebound, no guarding MSK: Atraumatic, full range of motion, pulses equal Skin: Warm, Dry, intact, no rashes Neuro: AO x3, CN II-XII grossly intact, moves all extremities, gait normal, NIH 0 Psych: affect normal, mood normal, not suicidal, not homicidal Course Course Course Narrative: Well-appearing patient with vague nonspecific brain fogginess and possible blood pressure changes. Patient only has 1 documented abnormal blood pressure on his handwritten list, the rest of patient's numerous blood pressure readings taken at home are within normal limits. Patient has no focal neurologic deficit, vital signs are stable within the exam room, patient is ambulatory in the emergency department without difficulty. Question if this is orthostatic in nature due to patient's description of lightheadedness after changing from lying to sitting up or upon getting up to walk around. Orders Ordered: ED Orders 12/12/22 15:04 EKG-12 Lead Stat 12/12/22 15:15 Complete Blood Count AUTO DIFF Stat Comprehensive Metabolic Panel Stat 12/12/22 16:00 CT head/brain wo con Stat Reevaluation(s) Reevaluation #1: Laboratory work is unremarkable. Patient stable on exam room. Patient explains that his symptoms have been ongoing for greater than 1 month. There is no indication for emergent imaging at this time. Patient was advised to follow up with his primary care physician. Instructions to take care when changing position. Vital Signs Vital signs: Vital Signs - 8 hr 12/12/22 14:46 12/12/22 14:48 12/12/22 15:00 Pulse Rate 88 85 Respiratory Rate 18 Blood Pressure 164/88 H 152/83 H Pulse Oximetry 96 96 Oxygen Delivery Method Room Air 12/12/22 15:00 12/12/22 15:15 12/12/22 15:15 Pulse Rate 75 76 Respiratory Rate 13 14 Blood Pressure 154/88 H Pulse Oximetry 95 96 Oxygen Delivery Method 12/12/22 15:30 12/12/22 15:30 12/12/22 15:45 Pulse Rate 72 Respiratory Rate 10 L Blood Pressure 153/83 H 154/89 H Pulse Oximetry 95 Oxygen Delivery Method 12/12/22 15:45 12/12/22 16:00 12/12/22 16:00 Pulse Rate 72 70 Respiratory Rate 11 L 10 L Blood Pressure 152/91 H Pulse Oximetry 96 96 Oxygen Delivery Method 12/12/22 16:30 12/12/22 16:43 12/12/22 16:43 Pulse Rate 65 69 Respiratory Rate 12 16 Blood Pressure 163/87 H Pulse Oximetry 97 97 Oxygen Delivery Method 12/12/22 17:00 Pulse Rate 66 Respiratory Rate 11 L Blood Pressure Pulse Oximetry 95 Oxygen Delivery Method Medical Decision Making Differential Diagnosis Differential Diagnosis: orthostatic hypotension, anemia, urinary tract infection. Lab Data 12/12/22 15:15 12/12/22 15:15 Labs: Lab Results 12/12/22 12/12/22 Range/Units 15:15 15:15 WBC 7.4 (4.5-11.0) X10^3/uL RBC 3.91 L (4.5-5.9) X10^6/uL Hgb 12.3 L (13.5-17.5) g/dL Hct 36.1 L (41-53) % MCV 92.1 (80-100) fL MCH 31.3 (26-34) PG MCHC 34.0 (30-36) % RDW 13.3 (11.6-14.8) % Plt Count 325 (150-400) X10^3/uL Neut % (Auto) 62.9 (50-75) % Lymph % (Auto) 26.5 (25-40) % [place] % (Auto) 8.5 (3-14) % Eos % (Auto) 1.2 L (2-4) % Baso % (Auto) 0.9 (0-2) % Neut # (Auto) 4600 (4030-3355) /uL Lymph # (Auto) 2000 (2017-7035) /uL [place] # (Auto) 600 (0-900) /uL Eos # (Auto) 100 (0-450) /uL Baso # (Auto) 100 (0-100) /uL Sodium 136 L (137-145) mmol/L Potassium 3.7 (3.4-5.1) mmol/L Chloride 106 (98-107) mmol/L Carbon Dioxide 23 (22-32) mmol/L BUN 26 H (9-20) mg/dL Creatinine 1.06 (0.66-1.25) mg/dL Estimated GFR > 60 (>60) mL/min BUN/Creatinine Ratio 24.5 H (6-22) Glucose 101 (80-110) mg/dL Calcium 8.8 (8.4-10.2) mg/dL Total Bilirubin 0.4 (0.2-1.3) mg/dL AST 25 (17-59) IU/L ALT 21 (<50) IU/L Alkaline Phosphatase 50 (38-126) U/L Total Protein 6.7 (6.3-8.2) g/dL Albumin 4.2 (3.5-5.0) g/dL Globulin 2.5 (1.7-4.1) g/dL Albumin/Globulin Ratio 1.7 (1.0-2.8) Urine Dip Bedside Urine Glucose Negative Bedside Urine Bilirubin - Negative Bedside Urine Ketone - Negative Urine Specific [place] 1.015 Bedside Urine Occult Blood - Negative Bedside Urine pH 6.0 Bedside Urine Protein - Negative Bedside Urine Urobilinogen - Negative Bedside Urine Nitrite - Negative Bedside Urine Leukocytes - Negative Esterase Point of care testing: Urine Dip Bedside Urine Glucose Negative Bedside Urine Bilirubin - Negative Bedside Urine Ketone - Negative Urine Specific [place] 1.015 Bedside Urine Occult Blood - Negative Bedside Urine pH 6.0 Bedside Urine Protein - Negative Bedside Urine Urobilinogen - Negative Bedside Urine Nitrite - Negative Bedside Urine Leukocytes - Negative Esterase ECG Data Interpretation: no STEMI Discharge Plan Departure Patient Disposition: Home Clinical Impression: Light-headed Instructions: DI for Dizziness-Nonvertigo Prescriptions: No Action omeprazole 20 MG capsule,delayed release(DR/EC) 20 mg PO QDAY Qty: 0 felodipine 5 MG tablet extended release 24 hr 5 mg PO QDAY Qty: 0 Sutab 1.479-0.188- 0.225 gram tablet See Rx Instructions PO PER PKG DIR Qty: 24 0RF Rx Instructions: Take as directed by Physician tramadol 50 MG tablet 1 tab PO Q6HP PRN (Reason: Insomnia) Referrals: Yordy Stone MD [Primary Care Provider] - Stand Alone Forms: Patient Portal/API
== END 2022-12-12 17:45 | disposition home or self-care (01) ==
PROVIDERS: Emergency Provider Emergency Medicine; PCP Family Medicine
DX: R42 Dizziness and giddiness (principal); R03.1 Nonspecific low blood-pressure reading; R26.9 Unspecified abnormalities of gait and mobility
CPT/HCPCS: 36415; 70450; 80053; 81003; 85025; 93005; 93010; 99284

== ENCOUNTER → 2023-01-23 09:35 | Outpatient (CLI) | payer MEDICARE, BC, SELFPAY ==
[2023-01-23 10:33] LABS: Influenza A - CEPHEID Flu A NEGATIVE (NEGATIVE); Influenza B - CEPHEID Flu B NEGATIVE (NEGATIVE); Respiratory Syncytial Virus Negative (Negative)
[2023-01-23 11:19] LABS: COVID-19 CEPHEID 4-PLEX PCR Negative (Negative)
== END ==
PROVIDERS: PCP Family Medicine; Visit Provider Registered Nurse
DX: R05.9 Cough, unspecified (principal); J02.9 Acute pharyngitis, unspecified; Z20.822 Contact with and (suspected) exposure to COVID-19
CPT/HCPCS: 0241U; 87070

== ENCOUNTER 2023-02-23 07:22 | Day surgery (SDC) | payer MEDICARE, BC, SELFPAY ==
[2023-02-16 12:44] VITALS: BMI 26.6
[2023-02-23 07:46] VITALS: BMI 27.1
[2023-02-23 07:59] VITALS: BP 157/89; PULSE 85; RESP 16; TEMP 36.4; O2SAT 98
[2023-02-23] MEDS: LACTATED RINGERS 1,000 ML 21 ML IV ×2 (08:01→09:57)
[2023-02-23] MEDS: ACETAMINOPHEN 325 MG TABLET 975 MG PO (08:08)
--- NOTE | 2023-02-23 08:30 | PM.PREOP ---
Pre-operative Note Interval Note History & Physical reviewed/Exam performed by Physician: Yes Changes to H&P: No
[2023-02-23] MEDS: CLINDAMYCIN 900 MG/50 ML PIGGYBACK 50 MG IV (09:00)
--- NOTE | 2023-02-23 09:25 | SUR.OPER ---
Supine on padded OR bed, head on pillow, arms secured on padded arm boards at <90 degrees abduction, legs uncrossed, safety belt at thigh, tape over blanket over lower legs.
[2023-02-23] MEDS: BUPIVACAINE 0.25% (PF) VIAL 30 ML INJ (09:39)
[2023-02-23 11:09] VITALS: BP 165/99; PULSE 93; RESP 13; TEMP 36.7; O2SAT 97
[2023-02-23 11:14] VITALS: PULSE 87; RESP 12; TEMP 36.7; O2SAT 96
[2023-02-23] MEDS: HYDROCODONE/ACET 5/325 TABLET 1 TAB PO (11:18)
[2023-02-23 11:19] VITALS: BP 169/93; PULSE 84; RESP 12; TEMP 36.7; O2SAT 96
--- NOTE | 2023-02-23 11:23 | P.OP_ITS ---
Operative Date/Time/Diagnoses Date of procedure: 02/23/23 Time of procedure: :24 Pre-op diagnosis: umbilical and bilateral inguinal hernias Post-op diagnosis: same Procedure & Clinicians Procedure: Open repair of umbilical hernia Laparoscopic repair of bilateral inguinal hernia Same procedure as scheduled: Yes Indications: 82-year-old male with a recurrent umbilical hernia and bilateral inguinal hernia here elective repair Surgeon: Gentry Ricks Anesthesia Type: General Operative Notes Findings: Bilateral indirect inguinal hernia. 4 cm umbilical hernia Specimen(s): none sent Estimated Blood Loss (mL): 20 Procedure in detail: The patient was brought to the operating room and placed supine on the table. Bilateral sequential compression devices were applied. General anesthesia was induced and they were intubated with an endotracheal tube. A unger cath was placed in sterile fashion. They received 900g clindaymycin prior to skin incision. They were prepped and draped in sterile fashion. A time out was performed to ensure the correct patient, procedure and necessary equipment within the operating room. The skin was infiltrated with 0.25% bupivicaine. An infraumbilical incision was made entering through the hernia defect. A 10mm balloon port was placed and pneumoperitoneum was established at 15mm Hg. Insp ection of the abdomen demonstrated no evidence of injury upon entry. Two 5 mm ports were then placed under direct visualization in the right and left lower quadrant lateral to the rectus muscle. A right and left indirect hernias were observed. There were adhesions between the sigmoid colon and the left pelvic side wall which were carefully dissected. Starting on the left side the peritoneum 4 cm superior to the deep inguinal ring between the medial umbilical ligament and the anterior superior iliac spine was incised. The medial preperitoneal dissection was carried out into the space of Retzius bluntly, the bladder was swept inferiorly, the pubis and Tomas's ligament were identified. Next attention was turned towards the lateral aspect of the peritoneal flap. The preperitoneal fat with the testicular vessels was carefully dissected off the inferior peritoneal flap. The cord was carefully inspected there was an indirect hernia sac which was skeltonized off the cord preserving the testicular vessels and the vas deferns. No direct defect was identified. A large Bard 3D Max mesh was then placed into the abdomen and positioned such that the myopectineal orifice was completely covered with good overlap on all sides. The peritoneal flap was then repositioned back to its original position and a running V lock suture was used to close the peritoneum such that no bowel could herniate into the preperitoneal space. The area was examined for hemostasis. Next the right side was addressed. The peritoneum 4 cm superior to the deep inguinal ring between the medial umbilical ligament and the anterior superior iliac spine was incised. The medial preperitoneal dissection was carried out into the space of Retzius bluntly, the bladder was swept inferiorly, the pubis and Tomas's ligament were identified. Next attention was turned towards the lateral aspect of the peritoneal flap. The preperitoneal fat with the testicular vessels was carefully dissected off the inferior peritoneal flap. The cord was carefully inspected there was an indirect hernia sac which was skeletonized off the cord structures. The sac was chronically incarcerated and could not be entirely reduced and therefore it was transected leaving the remnant stump. No direct defect was identified. A large Bard 3D Max mesh was then placed into the abdomen and positioned such that the myopectineal orifice was completely covered with good overlap on all sides. The peritoneal flap was then repositioned back to its original position and a running V lock suture was used to close the peritoneum such that no bowel could herniate into the preperitoneal space. The area was examined for hemostasis. The 5mm trocars were removed under direct visualization and pneumoperitoneum was deflated through the umbilical trocar. The umbilical hernia sac was dissected off the umbilical skin and circumferentially off of the fascia defect. Using blunt dissection I carefully carefully freed the hernia sac from beneath the fascia defect in order to accommodate the mesh. The fascia defect was 4 cm in maximal diameter. A Bard Ventralex ST hernia patch 8 cm was inserted beneath the fascia defect and above the peritoneum in a sublay position. The mesh was anchored in multiple locations using Ethibond suture to the fascia and the fascial defect was closed over the mesh. The umbilical skin was tacked to the subcutaneous tissues and then the remainder of the subcutaneous tissues were reapproximated using 3 0 Vicry,l skin closed with 4 0 Monocryl followed by the application of Dermabond and Steri- Strips. Sponge instrument count at the end of the operation was correct. Both testicles were entirely within the scrotum at the end of the case. The patient emerged from anesthesia was extubated and transferred to recovery in stable condition. Complications: none Post-operative Condition: stable Disposition: same day surgery
[2023-02-23 11:28] VITALS: BP 165/90; PULSE 80; RESP 14; TEMP 36.7; O2SAT 98
== END 2023-02-23 11:51 | disposition home or self-care (01) ==
PROVIDERS: PCP Family Medicine; Referring Provider Surgery; Visit Provider Surgery
PROC: (CPT 49650; principal; 2023-02-23 08:45)
PROC: 0YQ64ZZ Repair Left Inguinal Region, Percutaneous Endoscopic Approach (ICD-10-PCS; CPT 49650; 2023-02-23 08:45)
DX: K40.20 Bilateral inguinal hernia, without obstruction or gangrene, not specified as recurrent (principal); K42.9 Umbilical hernia without obstruction or gangrene; K66.0 Peritoneal adhesions (postprocedural) (postinfection)
CPT/HCPCS: 49650; J1100; J2405; J2704; J3010; J3490

== ENCOUNTER → 2023-03-16 07:49 | Outpatient (CLI) | payer MEDICARE, BC, SELFPAY ==
--- NOTE | 2023-03-16 | DI.US.S_ITS ---
PROCEDURE: US ABDOMEN LIMITED INDICATIONS: possible recurrent hernia, right lower quadrant pain TECHNIQUE: Evaluation of the right inguinal region was obtained. COMPARISON: None. FINDINGS: In the right inguinal region, there is a heterogenous ovoid nodular structure measuring 7.8 x 2.7 x 1.5 cm without change on Valsalva. No internal vascularity. IMPRESSION: Heterogenous right inguinal ovoid structure. Differential would include resolving hematoma but less likely recurrent hernia. Consider follow-up CT pelvis evaluation with contrast Approved by: Nacho Torrez M.D. on 03/16/2023 at 11:02
== END ==
PROVIDERS: PCP Family Medicine; Referring Provider Surgery; Visit Provider Surgery
DX: R10.31 Right lower quadrant pain (principal)
CPT/HCPCS: 76705

== ENCOUNTER → 2023-03-30 16:09 | Outpatient (CLI) | payer MEDICARE, BC, SELFPAY ==
[2023-03-30 16:49] LABS: BUN Creatinine Ratio 19.8 (6-22); Blood Urea Nitrogen 18 mg/dL (9-20); Calcium 9.6 mg/dL (8.4-10.2); Carbon Dioxide 28 mmol/L (22-32); Chloride 103 mmol/L (98-107); Estimated Glomerular Filt Rate > 60 mL/min (>60); Glucose 100 mg/dL (80-110); HEMOLYSIS < 15 (0-50); Potassium 4.4 mmol/L (3.4-5.1); Sodium 138 mmol/L (137-145)
== END ==
PROVIDERS: PCP Family Medicine; Referring Provider Surgery; Visit Provider Surgery
DX: K40.20 Bilateral inguinal hernia, without obstruction or gangrene, not specified as recurrent (principal)
CPT/HCPCS: 36415; 80048

== ENCOUNTER → 2023-04-01 08:41 | Outpatient (CLI) | payer MEDICARE, BC, SELFPAY ==
--- NOTE | 2023-04-01 08:42 | DI.CT.S_ITS ---
PROCEDURE: CT ABDOMEN PELVIS W CON INDICATIONS: abdominal; pain sp inguinal hernia repair TECHNIQUE: After the administration of oral and IV contrast, axial sections were acquired from the lung bases to the pubic symphysis. Coronal and sagittal reformats were performed. For radiation dose reduction, the following was used: automated exposure control, adjustment of mA and/or kV according to patient size. COMPARISON: [facility], US, US ABDOMEN LIMITED, 03/16/2023, 8:07. [facility], CT, ABDOMEN/PELVIS WITH CONTRAST, 06/14/2017, 11:43. FINDINGS: Image quality: Excellent. Lung bases: Unremarkable. Heart: Mitral annular calcification. Coronary artery calcification. ABDOMEN: Liver: No solid mass. Punctate calcified granuloma. Gallbladder: No radiopaque gallstones or wall thickening. Biliary ducts: No biliary dilation. Pancreas: No ductal dilation. Spleen: Size is within normal limits. Adrenal Glands: No adrenal nodules. Kidneys and Ureters: No hydronephrosis appreciated. Multiple benign cysts and benign peripelvic cysts. No solid renal mass. Stomach and Bowel: Somewhat prominent stool in the cecum. The appendix is not identified. No small bowel obstruction. Stomach is within normal limits. Peritoneum: No ascites. No pneumoperitoneum. Ventral Wall: Small fluid collection deep to the umbilical hernia repair measuring 5.7 x 4.5 x 2.6 cm, estimated volume of 35 cc, (2/48). Mild stranding in the adjacent fat. Hernia neck is no longer seen. There is mild heterogeneity in the subcutaneous fat. Abdominal Nodes: No retroperitoneal or mesenteric adenopathy by size criteria. Vessels: Aorta and inferior vena cava are normal in size. PELVIS: Pelvic Organs: Prostatomegaly. Bladder: Mostly decompressed. No stone. Pelvic Nodes: No enlarged lymph nodes. Miscellaneous: Right inguinal canal lower density 23 Hounsfield units collection measuring 1.9 x 1.9 x 1.5 cm, estimated volume of 3 cc. (2/74). Mild surrounding thickening. Hernia appears reduced. Left inguinal hernia is reduced. Mild stranding in the fat deep to the left inguinal canal. Bones: No aggressive osseous abnormality. IMPRESSION: 1. Prior umbilical hernia repair. Small intra-abdominal fluid collection deep to the hernia repair measuring 5.7 cm and approximately 35 cc. Suspect a small seroma. 2. Right inguinal hernia repair. Small low-density collection in the right inguinal canal measuring 1.9 cm and approximately 3 cc. Suspect a tiny hematoma. 3. Left inguinal hernia repair. No fluid collection. 4. No bowel obstruction. No pneumoperitoneum. Dictated by: Manny Ayala M.D. on 04/01/2023 at 9:41 Approved by: Manny Ayala M.D. on 04/01/2023 at 9:55
== END ==
PROVIDERS: PCP Family Medicine; Referring Provider Surgery; Visit Provider Surgery
DX: K40.20 Bilateral inguinal hernia, without obstruction or gangrene, not specified as recurrent (principal); Z98.890 Other specified postprocedural states
CPT/HCPCS: 74177; Q9967

== ENCOUNTER 2024-06-29 13:16 | Emergency (ER) | payer MEDICARE, SELFPAY ==
--- NOTE | 2024-06-29 13:21 | DI.RAD.S_ITS ---
PROCEDURE: XR CHEST 1V INDICATIONS: Shortness of breath TECHNIQUE: One view of the chest was acquired. COMPARISON: [facility], , XR CHEST 2V, 04/13/2019, 14:40. FINDINGS AND IMPRESSION: No airspace consolidation or pleural effusion on this single view study. Normal heart size. Tortuous aorta. Degenerative osseous findings. Dictated by: Tom Sampson M.D. on 06/29/2024 at 13:45 Approved by: Tom Sampson M.D. on 06/29/2024 at 13:46
[2024-06-29 13:22] VITALS: BP 159/79; PULSE 84; RESP 18; TEMP 36.5; O2SAT 99; BMI 28.2
--- NOTE | 2024-06-29 13:28 | EKG_ITS ---
[address] [address] Test Date: 2024-06-29 Pat Name: Alex Vásquez Department: [facility] Room: Gender: Male Pediatric Cns: RAVI : 1940 Requested By: Order Number: [id number] Reading MD: Siddhartha Perez MD Measurements Intervals [place] Rate: 82 P: 34 [place]: 158 QRS: 26 QRSD: 106 T: 16 QT: 374 QTc: 436 Interpretive Statements Normal sinus rhythm Electronically Signed On 06-29-2024 13:46:00 PDT by Siddhartha Perez MD
[2024-06-29 13:53] LABS: Prothrombin Time 11.1 SECONDS (9.4-12.5)
[2024-06-29 13:57] LABS: Alanine Aminotransferase 21 IU/L (<50); Albumin 4.8 g/dL (3.5-5.0); Albumin Globulin Ratio 1.8 (1.0-2.8); Alkaline Phosphatase 70 U/L (38-126); Aspartate Aminotransferase 29 IU/L (17-59); BUN Creatinine Ratio 22.4 (6-22); Bilirubin Total 0.7 mg/dL (0.2-1.3); Blood Urea Nitrogen 26 mg/dL (9-20); Calcium 9.4 mg/dL (8.4-10.2); Carbon Dioxide 21 mmol/L (22-32); Chloride 104 mmol/L (98-107); Estimated Glomerular Filt Rate > 60 mL/min (>60); Globulin 2.6 g/dL (1.7-4.1); Glucose 104 mg/dL (80-110); HEMOLYSIS < 15 (0-50); Potassium 4.2 mmol/L (3.4-5.1); Sodium 139 mmol/L (137-145); Total Protein 7.4 g/dL (6.3-8.2)
[2024-06-29 13:58] LABS: Lactate (Lactic Acid) 1.3 mmol/L (0.7-2.1)
[2024-06-29 14:05] LABS: Add Manual Diff / Slide Review NO; Basophils Absolute Auto 100 /uL (0-100); Basophils Percent Auto 1.1 % (0-2); Eosinophils Absolute Auto 0 /uL (0-450); Eosinophils Percent Auto 0.5 % (2-4); Hematocrit 38.9 % (41-53); Hemoglobin 12.9 g/dL (13.5-17.5); Lymphocytes Absolute Auto 1900 /uL (1100-4500); Mean Corpuscular HGB Conc 33.2 % (30-36); Mean Corpuscular Hemoglobin 30.5 PG (26-34); Mean Corpuscular Volume 92.1 fL (80-100); Monocytes Absolute Auto 800 /uL (0-900); Monocytes Percent Auto 10.8 % (3-14); Neutrophils Absolute Auto 4900 /uL (1500-7000); Neutrophils Percent Auto 63.6 % (50-75); Platelet Count 341 X10^3/uL (150-400); Red Blood Cell Count 4.22 X10^6/uL (4.5-5.9); Red Cell Distribution Width 12.9 % (11.6-14.8); White Blood Cell Count 7.8 X10^3/uL (4.5-11.0)
[2024-06-29 14:10] LABS: NT-proBNP (BNP-Adult 18+) 236 pg/mL (<450); Troponin I < 0.012 ng/mL (0.01-0.034)
[2024-06-29 15:10] LABS: Influenza A - CEPHEID Flu A NEGATIVE (NEGATIVE); Influenza B - CEPHEID Flu B NEGATIVE (NEGATIVE); Respiratory Syncytial Virus Negative (Negative)
--- NOTE | 2024-06-29 15:13 | ED.SOB ---
HPI - SOB/Dyspnea <Suma Ortez PA-C - Last Filed: 06/29/24 17:23> General Chief Complaint: Shortness of Breath/Dyspnea Stated Complaint: SOB, No energy Time Seen by Provider: 06/29/24 15:12 Source: patient Mode of arrival: Family Vehicle Limitations: no limitations History of Present Illness HPI Narrative: Mr. Vásquez is a pleasant 84-year-old male with a past medical history of 3 cardiac stents in 1999, upper GI bleed, hernias, hypertension who presents to the emergency department for shortness of breath x5 days. Patient states about 5 days ago while performing yard work he noticed that he became extremely short of breath. Reports that he goes to the gym every day and does not typically becomes short of breath. He then was feeling better and walked all around [facility] without becoming short of breath. This morning while pruning his hydrangeas/roses he noticed that the shortness of breath came back and was much worse which prompted his emergency department arrival. He denies chest pain, current shortness of breath, lower extremity swelling, orthopnea, paroxysmal nocturnal dyspnea, fevers, chills, coughing. Reports taking his blood pressure frequently at home and occasionally has low blood pressure readings but they are always high when he comes to the doctor. Related Data Home Medications Medication Instructions Recorded Confirmed felodipine 5 mg tablet,extended 5 mg PO QDAY ##0 06/14/17 05/13/23 release 24 hr omeprazole 20 mg capsule,delayed 20 mg PO QDAY ##0 06/14/17 05/13/23 release aspirin 81 mg tablet,delayed 81 mg PO DAILY 01/23/23 05/13/23 release atorvastatin 40 mg tablet 40 mg PO DAILY 01/23/23 05/13/23 losartan 25 mg tablet 25 mg PO DAILY 01/23/23 05/13/23 calcium citrate 200 mg PO DAILY 02/16/23 05/13/23 cholecalciferol (vitamin D3) 25 25 mcg PO DAILY 02/16/23 05/13/23 mcg (1,000 unit) capsule cyclosporine 0.05 % eye drops in a 1 drp EYE-BOTH DAILY 02/16/23 05/13/23 dropperette (Restasis) dorzolamide 22.3 mg-timolol 6.8 1 drp EYE-BOTH DAILY 02/16/23 05/13/23 mg/mL eye drops latanoprost 0.005 % eye drops 1 drp EYE-BOTH DAILY 02/16/23 05/13/23 mecobalamin (vitamin B12) 1,000 5,000 mcg PO DAILY 02/16/23 05/13/23 mcg lozenges metronidazole 0.75 % topical cream 1 applic topical BID 02/16/23 05/13/23 multivitamin 1 tab PO DAILY 02/16/23 05/13/23 netarsudil 0.02 % eye drops 1 drp EYE-BOTH BID 02/16/23 05/13/23 (Rhopressa) Previous Rx's Medication Instructions Recorded acetaminophen 325 mg capsule 650 mg (2 x 325 mg) PO QID PRN 02/23/23 (Tylenol) pain #60 caps docusate sodium 100 mg capsule 100 mg PO BID #30 caps 02/23/23 (Colace) celecoxib 200 mg capsule 200 mg PO BID #20 caps 03/15/23 prednisone 10 mg tablet 10 mg PO DIRECTED #31 tabs 04/13/23 Allergies Allergy/AdvReac Type Severity Reaction Status Date / Time oxycodone [OXYCODONE] Allergy Severe HIVES Verified 06/29/24 13:27 Penicillins Allergy Severe HIVES Verified 06/29/24 13:27 Review of Systems <Suma Ortez PA-C - Last Filed: 06/29/24 17:23> Review of Systems ROS Unobtainable: All systems reviewed & are unremarkable except as noted in HPI and below Patient History <Suma Ortez PA-C - Last Filed: 06/29/24 17:23> Medical History Arthritis Pneumonia Hearing deficit HTN (hypertension) Stomach ulcer due to nonsteroidal anti-inflammatory drug (NSAID) Neuropathy Surgical History Hx of appendectomy (1962) Hx of umbilical hernia repair (1975) History of heart artery stent (1999) Hx of hernia repair (2002) History of total right knee replacement (2014) Family History Mother Hypertension Father Hypertension Stroke Brother Colon cancer Sister Colon cancer Other Family history non-contributory Social History marital status: household members: spouse occupational status: previously employed Smoking Status: Former smoker alcohol intake: current substance use type: does not use Smoking Status: Former smoker tobacco type: cigarettes alcohol intake frequency: holidays/special occasions only Exam <Suma Ortez PA-C - Last Filed: 06/29/24 17:23> Narrative Exam Narrative: GENERAL: 84 year old patient appears stated age. Well-developed patient, in no acute distress. HEAD: Atraumatic. Normocephalic. EYES: No scleral icterus. No injection or drainage. NECK: Trachea midline. Cervical ROM intact. No carotid bruits auscultated. CARDIOVASCULAR: Regular rate and rhythm. RESPIRATORY: ?Nonlabored respirations. ?Speaking in clear, full sentences. ?Clear to auscultation. Breath sounds equal bilaterally. No wheezes, rales, or rhonchi. ? EXTREMITIES: No edema or joint tenderness. NEURO: AOx3. ?Clear speech. ?Moves all 4 extremities appropriately. SKIN: No rash or erythema of visible areas Initial Vital Signs Initial Vital Signs: Vital Signs Temperature 97.7 F 06/29/24 13:22 Pulse Rate 84 06/29/24 13:22 Respiratory Rate 18 06/29/24 13:22 Blood Pressure 159/79 H 06/29/24 13:22 Pulse Oximetry 99 06/29/24 13:22 Oxygen Delivery Method Room Air 06/29/24 13:22 <Mansoor Rodriguez MD - Last Filed: 06/29/24 20:58> Initial Vital Signs Initial Vital Signs: Vital Signs Temperature 97.7 F 06/29/24 13:22 Pulse Rate 84 06/29/24 13:22 Respiratory Rate 18 06/29/24 13:22 Blood Pressure 159/79 H 06/29/24 13:22 Pulse Oximetry 99 06/29/24 13:22 Oxygen Delivery Method Room Air 06/29/24 13:22 Scores <Suma Ortez PA-C - Last Filed: 06/29/24 17:23> HEART Score Heart Score history: Slightly Suspicious Heart Score EKG: Normal Heart Score Age: > or = 65 years old Heart Score risk factors: > 3 risk factors or hx of atherosclerotic disease Heart Score troponin: < or = to normal limit Heart Score Total: 4 PERC Score Age greater than or equal to 50 years: Yes Heart rate greater than or equal to 100 bpm: No Room Air O2 Sat less than 95%: No Unilateral leg swelling: No Recent trauma or surgery: No Hemoptysis: No Prior PE or DVT: No Hormone Use: No Total PERC Score: 1 <Mansoor Rodriguez MD - Last Filed: 06/29/24 20:58> HEART Score Heart Score Total: 4 PERC Score Total PERC Score: 1 Course <Suma Ortez PA-C - Last Filed: 06/29/24 17:23> Orders Ordered: ED Orders 06/29/24 13:21 XR chest 1V Stat EKG-12 Lead Stat Measure peak expiratory flow ONCE RT Consult Eval and Treat NOW 06/29/24 13:36 Complete Blood Count AUTO DIFF Stat Comprehensive Metabolic Panel Stat D Dimer Stat Lactate (Lactic Acid) Stat NT-proBNP (BNP-Adult 18+) Stat Prothrombin Time INR Stat Troponin I Stat 06/29/24 14:28 Covid-19 + FLU A/B + RSV - PCR Stat 06/29/24 15:50 Trop I [Troponin I] Stat Vital Signs Vital signs: Vital Signs - 8 hr 06/29/24 13:22 06/29/24 15:15 06/29/24 17:08 Temperature 97.7 F Pulse Rate 84 78 69 Respiratory Rate 18 18 18 Blood Pressure 159/79 H 159/88 H 179/88 H Pulse Oximetry 99 99 100 Oxygen Delivery Method Room Air Room Air Room Air <Mansoor Rodriguez MD - Last Filed: 06/29/24 20:58> Orders Ordered: ED Orders 06/29/24 13:21 XR chest 1V Stat EKG-12 Lead Stat Measure peak expiratory flow ONCE RT Consult Eval and Treat NOW 06/29/24 13:36 Complete Blood Count AUTO DIFF Stat Comprehensive Metabolic Panel Stat D Dimer Stat Lactate (Lactic Acid) Stat NT-proBNP (BNP-Adult 18+) Stat Prothrombin Time INR Stat Troponin I Stat 06/29/24 14:28 Covid-19 + FLU A/B + RSV - PCR Stat 06/29/24 15:50 Trop I [Troponin I] Stat Vital Signs Vital signs: Vital Signs - 8 hr 06/29/24 13:22 06/29/24 15:15 06/29/24 17:08 Temperature 97.7 F Pulse Rate 84 78 69 Respiratory Rate 18 18 18 Blood Pressure 159/79 H 159/88 H 179/88 H Pulse Oximetry 99 99 100 Oxygen Delivery Method Room Air Room Air Room Air MDM - SOB/Dyspnea <Suma Ortez PA-C - Last Filed: 06/29/24 17:23> Medical Records Attestation: I reviewed the patient's medical records. Lab Data 06/29/24 13:36 06/29/24 13:36 Labs: Lab Results 06/29/24 06/29/24 06/29/24 Range/Units 13:36 14:28 15:50 WBC 7.8 (4.5-11.0) X10^3/uL RBC 4.22 L (4.5-5.9) X10^6/uL Hgb 12.9 L (13.5-17.5) g/dL Hct 38.9 L (41-53) % MCV 92.1 (80-100) fL MCH 30.5 (26-34) PG MCHC 33.2 (30-36) % RDW 12.9 (11.6-14.8) % Plt Count 341 (150-400) X10^3/uL Neut % (Auto) 63.6 (50-75) % Lymph % (Auto) 24.0 L (25-40) % [place] % (Auto) 10.8 (3-14) % Eos % (Auto) 0.5 L (2-4) % Baso % (Auto) 1.1 (0-2) % Neut # (Auto) 4900 (9563-8334) /uL Lymph # (Auto) 1900 (8659-1322) /uL [place] # (Auto) 800 (0-900) /uL Eos # (Auto) 0 (0-450) /uL Baso # (Auto) 100 (0-100) /uL PT 11.1 (9.4-12.5) SECONDS INR 1.0 (0.9-1.3) D-Dimer 398 (<500) ng/ml Sodium 139 (137-145) mmol/L Potassium 4.2 (3.4-5.1) mmol/L Chloride 104 (98-107) mmol/L Carbon Dioxide 21 L (22-32) mmol/L BUN 26 H (9-20) mg/dL Creatinine 1.16 (0.66-1.25) mg/dL Estimated GFR > 60 (>60) mL/min BUN/Creatinine Ratio 22.4 H (6-22) Glucose 104 (80-110) mg/dL Lactate 1.3 (0.7-2.1) mmol/L Calcium 9.4 (8.4-10.2) mg/dL Total Bilirubin 0.7 (0.2-1.3) mg/dL AST 29 (17-59) IU/L ALT 21 (<50) IU/L Alkaline Phosphatase 70 (38-126) U/L Troponin I < 0.012 < 0.012 (0.01-0.034) ng/mL NT-Pro-B Natriuret Pep 236 (<450) pg/mL Total Protein 7.4 (6.3-8.2) g/dL Albumin 4.8 (3.5-5.0) g/dL Globulin 2.6 (1.7-4.1) g/dL Albumin/Globulin Ratio 1.8 (1.0-2.8) SARS-CoV-2 (PCR) Negative (Negative) Influenza A (RT-PCR) Flu a negative (NEGATIVE) Influenza B (RT-PCR) Flu b negative (NEGATIVE) RSV (PCR) Negative (Negative) Imaging Data Chest x-ray: Radiologist's Impression: PROCEDURE: XR CHEST 1V INDICATIONS: Shortness of breath TECHNIQUE: One view of the chest was acquired. COMPARISON: [facility], , XR CHEST 2V, 04/13/2019, 14:40. FINDINGS AND IMPRESSION: No airspace consolidation or pleural effusion on this single view study. Normal heart size. Tortuous aorta. Degenerative osseous findings. [facility] Narrative Medical decision making narrative: 84-year-old male with a past medical history of cardiac stents in 1999, upper GI bleed, hernias, hypertension who presents to the emergency department for shortness of breath x5 days. Differential diagnosis includes but is not limited to angina, ACS/GA, PE, pneumonia, viral syndrome, bronchitis, anemia, etc. On exam patient is in no acute distress, nontoxic appearing, vital signs within normal limits. Lungs clear to auscultation bilaterally. He is not hypoxic. No clinical signs of DVT. No melena, hematochezia, hemoptysis, hematuria. ECG reviewed with the attending Dr. Rodriguez. No STEMI. Normal sinus rhythm. Negative troponin x 2, negative BNP, negative D-dimer. Hemoglobin 12.9. Chest x-ray reveals no airspace consolidation or pleural effusion. Patient remained symptom free throughout his emergency department stay. Heart score is 4. I did call his PCP Dr. Stone to discuss stress test/echo, he will see him Tuesday at 3:00 p.m. for further evaluation. Recommended that he take it easy this weekend, return to the ED if any concerns. Discussed workup with the patient. He feels reassured. He is agreeable to see his PCP on Tuesday. We discussed strict ED return precautions. He verbalized understanding of all information agreeable with the plan. He is stable for discharge home. <Mansoor Rodriguez MD - Last Filed: 06/29/24 20:58> Lab Data Labs: Lab Results 06/29/24 06/29/24 06/29/24 Range/Units 13:36 14:28 15:50 WBC 7.8 (4.5-11.0) X10^3/uL RBC 4.22 L (4.5-5.9) X10^6/uL Hgb 12.9 L (13.5-17.5) g/dL Hct 38.9 L (41-53) % MCV 92.1 (80-100) fL MCH 30.5 (26-34) PG MCHC 33.2 (30-36) % RDW 12.9 (11.6-14.8) % Plt Count 341 (150-400) X10^3/uL Neut % (Auto) 63.6 (50-75) % Lymph % (Auto) 24.0 L (25-40) % [place] % (Auto) 10.8 (3-14) % Eos % (Auto) 0.5 L (2-4) % Baso % (Auto) 1.1 (0-2) % Neut # (Auto) 4900 (1627-9460) /uL Lymph # (Auto) 1900 (6606-6544) /uL [place] # (Auto) 800 (0-900) /uL Eos # (Auto) 0 (0-450) /uL Baso # (Auto) 100 (0-100) /uL PT 11.1 (9.4-12.5) SECONDS INR 1.0 (0.9-1.3) D-Dimer 398 (<500) ng/ml Sodium 139 (137-145) mmol/L Potassium 4.2 (3.4-5.1) mmol/L Chloride 104 (98-107) mmol/L Carbon Dioxide 21 L (22-32) mmol/L BUN 26 H (9-20) mg/dL Creatinine 1.16 (0.66-1.25) mg/dL Estimated GFR > 60 (>60) mL/min BUN/Creatinine Ratio 22.4 H (6-22) Glucose 104 (80-110) mg/dL Lactate 1.3 (0.7-2.1) mmol/L Calcium 9.4 (8.4-10.2) mg/dL Total Bilirubin 0.7 (0.2-1.3) mg/dL AST 29 (17-59) IU/L ALT 21 (<50) IU/L Alkaline Phosphatase 70 (38-126) U/L Troponin I < 0.012 < 0.012 (0.01-0.034) ng/mL NT-Pro-B Natriuret Pep 236 (<450) pg/mL Total Protein 7.4 (6.3-8.2) g/dL Albumin 4.8 (3.5-5.0) g/dL Globulin 2.6 (1.7-4.1) g/dL Albumin/Globulin Ratio 1.8 (1.0-2.8) SARS-CoV-2 (PCR) Negative (Negative) Influenza A (RT-PCR) Flu a negative (NEGATIVE) Influenza B (RT-PCR) Flu b negative (NEGATIVE) RSV (PCR) Negative (Negative) Discharge Plan Departure Patient Disposition: Home Clinical Impression: NELSON (dyspnea on exertion) Instructions: DI for Angina Activity Restrictions/Additional Instructions: Dear Fahad, Thank you for coming to the emergency department today. Your lab work today was very reassuring. We would like you to follow up with your primary care doctor for further evaluation with possible stress test/echocardiogram. Dr. Stone has scheduled an appointment to see you on Tuesday at 3:00 p.m.. Please take it easy this weekend and avoid any strenuous activity. Please return to the emergency department if you develop chest pain, shortness of breath, dizziness or any other concerns. Please call 911 if you experience any acute symptoms. Please follow up with your primary care doctor within the next 2-3 days for ER follow-up. (If you do not have a PCP you can call [phone]. ?to schedule an appointment with an [facility] Primary Care Provider) IF YOU DEVELOP ANY NEW OR WORSENING SYMPTOMS, RETURN TO THE ER! Please read the attached instructions, they highlight more specific treatments and interventions for you at home. Thank you for letting me participate in your care, Suma Ortez PA-C Prescriptions: No Action atorvastatin 40 mg tablet 40 mg PO DAILY aspirin 81 mg tablet,delayed release (DR/EC) 81 mg PO DAILY losartan 25 mg tablet 25 mg PO DAILY omeprazole 20 MG capsule,delayed release(DR/EC) 20 mg PO QDAY Qty: 0 felodipine 5 MG tablet extended release 24 hr 5 mg PO QDAY Qty: 0 mecobalamin (vitamin B12) 1,000 mcg lozenge 5,000 mcg PO DAILY Rx Instructions: allow to dissolve in mouth OR may chew lightly before swallowing calcium citrate 200 mg (950 mg) tablet 200 mg PO DAILY cholecalciferol (vitamin D3) 25 mcg (1,000 unit) capsule 25 mcg PO DAILY dorzolamide-timolol 22.3-6.8 mg/mL drops 1 drp EYE-BOTH DAILY latanoprost 0.005 % drops 1 drp EYE-BOTH DAILY metronidazole 0.75 % cream 1 applic topical BID multivitamin Tablet 1 tab PO DAILY cyclosporine [Restasis] 0.05 % dropperette 1 drp EYE-BOTH DAILY Rx Instructions: EVERY 12 HRS Rhopressa 0.02 % drops 1 drp EYE-BOTH BID celecoxib 200 mg capsule 200 mg PO BID Qty: 20 0RF prednisone 10 mg tablet 10 mg PO DIRECTED Qty: 31 0RF Rx Instructions: see taper instructions 4 pills per day x 4 days 3 pills per day x 3 days 2 pills per day x 2 days 1 pill per day x 2 days docusate sodium [Colace] 100 mg capsule 100 mg PO BID Qty: 30 0RF acetaminophen [Tylenol] 325 mg capsule 650 mg PO QID PRN (Reason: pain) Qty: 60 0RF Referrals: Yordy Stone MD [Primary Care Provider] - Stand Alone Forms: Patient Portal/API/Survey ED Sign-out <Mansoor Rodriguez MD - Last Filed: 06/29/24 20:58> Cosign ED Attending Cosignature Attestation: I was immediately available in the department for consultation. This documentation has been reviewed and I agree with assessment and plan. Supervised by Mansoor Rodriguez MD
[2024-06-29 15:15] VITALS: BP 159/88; PULSE 78; RESP 18; O2SAT 99
[2024-06-29 15:40] LABS: COVID-19 CEPHEID 4-PLEX PCR Negative (Negative)
[2024-06-29 15:50] LABS: D Dimer 398 ng/ml (<500)
[2024-06-29 16:23] LABS: Troponin I < 0.012 ng/mL (0.01-0.034)
[2024-06-29 17:08] VITALS: BP 179/88; PULSE 69; RESP 18; O2SAT 100
== END 2024-06-29 17:08 | disposition home or self-care (01) ==
PROVIDERS: Emergency Medicine; Emergency Provider Physician Assistant; PCP Family Medicine
DX: R06.00 Dyspnea, unspecified (principal); Z95.5 Presence of coronary angioplasty implant and graft
CPT/HCPCS: 0241U; 36415; 71045; 80053; 83605; 83880; 84484; 85025; 85379; 85610; 93005; 99283; 99284

== ENCOUNTER → 2024-07-05 07:44 | Outpatient (CLI) | payer MEDICARE, BC, SELFPAY ==
--- NOTE | 2024-07-05 07:46 | DI.NM.S_ITS ---
PROCEDURE: NM EVA PERF SPECT R&S PHARM Rest and pharmacological stress myocardial perfusion SPECT with gated imaging and ejection fraction RADIOPHARMACEUTICAL: 26.1 mCi Tc-99m tetrafosmin IV at rest and 25.5 mCi Tc-99m tetrafosmin IV at peak effect of pharmacological stress. [id number] was performed. INDICATIONS: Dyspnea on exertion TECHNIQUE: Radiopharmaceutical was injected at peak stress test, and also at rest. SPECT images were obtained. SPECT myocardial perfusion images were displayed in short axis, horizontal long axis, and vertical long axis views. Gated images were reviewed using PixelSteam software. COMPARISON: None. CARDIAC STRESS: A pharmacologic stress test was performed under the supervision of an attending staff, using an infusion of lexiscan 0.4mg IV X1. Hemodynamic data: There is normal blood pressure and heart rate response to pharmacologic stress. Symptoms: The patient denied anginal chest pain. Aminophylline: none EKG: No diagnostic changes of ischemia; occasional PVCs present. FINDINGS: Raw data: There is good myocardial uptake of radiotracer. No significant motion artifacts. Sxdh-fn-[id number] ratio is 0.25 (normal is less than 0.38 for tetrafosmin tracer). Left ventricle function: Gated images demonstrate normal left ventricular wall thickening. No segmental wall motion abnormalities. No transient ischemic dilation; TID is 1.24 (normal less than 1.3). Left ventricle resting end diastolic volume is 97 mL. Left ventricle stress ejection fraction is 72%; normal range is above 45%. Myocardial perfusion: There is a moderate intense inferior wall defect at rest that improves with stress, suggesting artifact but old non-transmural infarction can't be excluded as prone images are not available. SSS 3, SRS 8. IMPRESSION: Low risk, probably normal pharm nuclear stress test from inducible standpoint. 1) There is a moderate intense inferior wall defect at rest that improves with stress, suggesting artifact but old non-transmural infarction can't be excluded as prone images are not available. SSS 3, SRS 8. Prone images on nuc study 10/13/2021 normalized inferior wall perfusion defects. 2) Normal left ventricular size, wall motion, and systolic function (EF post stress 72%). 3) No angina and no diagnostic ST changes with lexiscan. 4) Compared to the nuclear stress test 10/13/2021, prone images are not available and, thus, old non-transmural infarction can't be excluded. Dictated by: Parth Feng MD on 07/10/2024 at 17:03 Approved by: Parth Feng MD on 07/10/2024 at 17:09
== END ==
PROVIDERS: PCP Family Medicine; Referring Provider Family Medicine; Visit Provider Family Medicine
DX: R06.09 Other forms of dyspnea (principal)
CPT/HCPCS: 78452; 93017; A9502; J2785

== ENCOUNTER → 2024-07-10 12:17 | Outpatient (CLI) | payer MEDICARE, BC, SELFPAY | PROVIDERS: PCP Family Medicine; Referring Provider Family Medicine; Visit Provider Family Medicine | DX: R06.09 Other forms of dyspnea (principal) ==

== ENCOUNTER → 2024-07-24 10:05 | Outpatient (CLI) | payer MEDICARE, BC, SELFPAY ==
--- NOTE | 2024-07-24 10:25 | DI.ECHO.S_ITS ---
[facility] : : [address] : : [place] : : [id number] : : Phone: [phone] Echocardiogram Report + + :Name: CONSTANTIN BERGER Study Date: 07/24/2024 Height: 73 in : :[facility] ReadingLocation: Weight: 213 lb : : Gender: Male BSA: 2.2 m2 : :: 1940 Age: 84 yrs BP: 164/93 mmHg: :Reason For Study: Dyspnea : :Ordering Physician: JAZZY, : :SOFI Performed By: Joyce Carrillo : :Referring: SOFI PURCELL : + + Interpretation Summary The left ventricle is normal in size and wall thickness. Left ventricular systolic function appears normal without focal wall motion abnormalities. The ejection fraction is estimated to be 55-60%. The right ventricle grossly appears normal in size with probable normal systolic function. The right ventricular systolic pressure is estimated to be at least 27 mmHg based on an estimated right atrial pressure of 3 mm Hg. The left atrium is mildly dilated. There is moderate mitral annular calcification. The mitral valve leaflets are mildly calcified. There is no mitral regurgitation noted. There is no other significant valvular heart disease. The ascending aorta is mildly enlarged. Procedure: A two-dimensional transthoracic echocardiogram with color flow and Doppler was performed. The study quality was technically adequate. Comparison is made with the echocardiogram of 07-11-09. The heart rate ranged between 70-72 bpm during the study. Left Ventricle: The left ventricle is normal in size and wall thickness. Left ventricular systolic function appears normal without focal wall motion abnormalities. The ejection fraction is estimated to be 55-60%. Diastolic function could not be accurately assessed due to contradictory data. Right Ventricle: The right ventricle grossly appears normal in size with probable normal systolic function. Atria: The left atrium is mildly dilated. Right atrial size is normal. The interatrial septum grossly appears intact with no obvious evidence for an atrial septal defect. Mitral Valve: The mitral valve leaflets appear mildly thickened, but open well. There is moderate mitral annular calcification. The mitral valve leaflets are mildly calcified. There is no mitral regurgitation noted. Aortic Valve: The aortic valve opens well. There is mild aortic valve sclerosis. No aortic regurgitation is present. Tricuspid Valve: The tricuspid valve leaflets are thin and pliable. There is a trace or physiologic amount of tricuspid regurgitation. The right ventricular systolic pressure is estimated to be at least 27 mmHg based on an estimated right atrial pressure of 3 mm Hg. Pulmonic Valve: The pulmonic valve is not well seen, but is grossly normal. There is no pulmonic valvular regurgitation. There is no other significant valvular heart disease. Great Vessels: The aortic root is normal size. The ascending aorta is mildly enlarged. The aortic arch is normal in size. The IVC is of normal diameter and collapses greater than 50% with a sniff. This suggests a low right atrial pressure of 3 mm Hg. Pericardium/ Pleura There is no pericardial effusion. There is no pleural effusion. MMode/2D Measurements & Calculations LVIDd: 4.1 cm LVOT diam: 2.5 cm LVIDs: 2.2 cm Ao root diam: 3.8 cm FS: 46.2 % asc Aorta Diam: 3.9 cm EPSS: 0.55 cm Ao Arch Diam (Prox Trans): 2.9 cm IVSd: 0.86 cm LVPWd: 0.84 cm LV ramos. diameter/BSA (cm/m^2): 1.9 LV sys. diameter/BSA (cm/m^2): 1.0 LA A2 area: 24.8 cm2 RA long axis: 5.6 cm LA A4 area: 25.7 cm2 RA area: 18.5 cm2 LA length (vol): 6.1 cm RA vol: 52.3 ml LA vol: 88.8 ml RA : 23.6 ml/m2 LA vol index: 40.2 ml/m2 IVC diam: 2.0 cm RVD1 (basal): 3.7 cm TAPSE: 2.7 cm Doppler Measurements & Calculations Ao V2 max: 164.4 cm/sec LVOT Max Jose: 99.1 cm/sec Ao V2 mean: 112.4 cm/sec LV V1 max P.9 mmHg Ao max P.8 mmHg LV V1 VTI: 25.1 cm Ao mean P.8 mmHg CIERRA(I,D): 3.4 cm2 Ao V2 VTI: 36.6 cm CIERRA(V,D): 3.0 cm2 sev ratio: 0.69 CIERRA indexed to BSA (cm^2/m^2): 1.5 MV E max jose: 104.4 cm/sec TR max jose: 244.0 cm/sec MV A max jose: 133.8 cm/sec TR max P.8 mmHg MV E/A: 0.78 PA V2 max: 88.2 cm/sec Med Peak E' Jose: 5.6 cm/sec PA V2 mean: 63.3 cm/sec E/E' med: 18.6 PA mean P.7 mmHg Lat Peak E' Jose: 4.2 cm/sec PA pr(Accel): 27.6 mmHg E/E' lat: 24.8 E/e' average: 21.7 MV dec time: 0.33 sec SV(LVOT): 123.2 ml Reading Physician:05:17 PM
== END ==
PROVIDERS: PCP Family Medicine; Referring Provider Family Medicine; Visit Provider Family Medicine
DX: I34.81 Nonrheumatic mitral (valve) annulus calcification (principal); I35.8 Other nonrheumatic aortic valve disorders; I77.89 Other specified disorders of arteries and arterioles; I25.2 Old myocardial infarction; R06.09 Other forms of dyspnea
CPT/HCPCS: 93306

== ENCOUNTER → 2024-08-16 12:46 | Outpatient (CLI) | payer MEDICARE, BC, SELFPAY ==
--- NOTE | 2024-08-16 12:50 | DI.RAD.S_ITS ---
PROCEDURE: XR LUMBAR SPINE 2-3V INDICATIONS: LOWER BACK PAIN TECHNIQUE: 3 views of the lumbar spine were acquired. COMPARISON: None. FINDINGS: Bones: 5 [id number] vertebrae are present. Retrolisthesis of L3 on L4 measures 0.5 cm. There is otherwise normal bony alignment. Severe L5-S1 disc height loss with adjacent endplate sclerosis and anterior osteophytosis. No vertebral body compression fractures. No suspicious bony lesions. Soft tissues: Overlying bowel gas pattern is normal. No suspicious soft tissue calcifications. Atherosclerotic vascular calcifications. 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 Dictated by: Armani Cabrera M.D. on 08/17/2024 at 2:24 Approved by: Armani Cabrera M.D. on 08/17/2024 at 2:26
== END ==
PROVIDERS: PCP Family Medicine; Referring Provider Family Medicine; Visit Provider Nurse Practitioner Family
DX: M47.816 Spondylosis without myelopathy or radiculopathy, lumbar region (principal); M54.50 Low back pain, unspecified
CPT/HCPCS: 72100